=== PATIENT | female | born 1990 | race Caucasian/White ===

== ENCOUNTER 2017-01-17 08:22 | Inpatient (IN) | payer OTHER ==
--- NOTE | ~2017-01-17 | PN ---
Unit #: [id number] #: [id number] Patient: NAT PATTON [id number] [facility] [address] [place] [address] [id number] MR#: [id number] NAME: NAT PATTON ROOM: [facility] Age: 26 Sex: F Admission Date: 01/17/2017 : 1990 Attending Physician: Yaniv Bernard M.D. Admitting Physician: Pete Romero PROGRESS NOTES DATE OF SERVICE: 01/19/2017 DISCUSSION Ms. Nat Dan is a 26-year-old female, seen on 01/19/2017. The patient was having lot of problem with vomiting, withdrawal symptoms from opiate withdrawal, subsequently the patient was started on methadone 15 mg at bedtime with a plan to taper it off. The patient reports no changes, still having above-mentioned symptoms. The patient received Phenergan for vomiting. Vital signs; temperature 98.4, pulse 78, and blood pressure 87/53. The patient isolative, guarded, flat affect, stayed in her room. Reported symptoms like nausea, vomiting, chills, aches, tremor. REVIEW OF SYSTEMS Complete review of systems unremarkable. MENTAL STATUS EXAMINATION General appearance, the patient dressed in hospital attire. Attention span and concentration, poor. Oriented in place and person. Mood and affect, sad and depressed. Speech, monotone. Thought process, concrete. The patient denied any thoughts of harming self or others, but guarded. Recent and remote memory, poor. Insight and judgment, poor. DIAGNOSES Opiate use disorder, severe. ASSESSMENT AND PLAN Advised to continue with current medication and therapeutic protocol. If needed, consider further adjustment of medication. Dictated by... Pete Romero/adiel TD: 01/20/2017 15:05 JOB #: [id number] Unit #: [id number] #: [id number] Patient: NAT PATTON PROGRESS NOTES Page 1 of 1 X Yaniv Bernard MD PROGRESS NOTE
--- NOTE | ~2017-01-17 | HP ---
Unit #: [id number] #: [id number] Patient: NAT PATTON [id number] [place] [address] [id number] I MR#: [id number] NAME: NAT PATTON ROOM: 86 Age: 26 Sex: F Admission Date: 01/17/2017 : 1990 Attending Physician: Yaniv Bernard M.D. Admitting Physician: Yaniv Bernard M.D. Primary Care Physician: Generic Doctor Not In System HISTORY AND PHYSICAL HISTORY OF PRESENT ILLNESS Nat is a 26 year old admitted to [facility] because of her drug use. She shoots heroin. PAST MEDICAL HISTORY 1. Long history of opioid abuse to include IV heroin. 2. Hepatitis C. PAST SURGICAL HISTORY Nothing reported. ALLERGIES No known drug allergies. SOCIAL HISTORY He smokes greater than 1 pack per day. Denies alcohol. Admits to a long history of opioid abuse to include IV heroin. FAMILY HISTORY Medically noncontributory. REVIEW OF SYSTEMS CONSTITUTIONAL: No fever or chills. HEENT: Denies any sore throat, ear pain or runny nose. CARDIOVASCULAR: Denies chest pain, irregular heart rhythm or palpitations. CHEST: Denies shortness of breath or cough. No hemoptysis. GASTROINTESTINAL: Denies nausea, vomiting, diarrhea or chronic constipation. ENDOCRINE: Denies history of increased thirst or urination. No recent significant weight loss or gain. GENITOURINARY: Denies dysuria, frequency, or hematuria. SKIN: Denies any rashes. HEMATOLOGIC: Denies history of increased bleeding or bruising. MUSCULOSKELETAL: Denies any hot, swollen joints. No generalized muscle pain. NEUROLOGIC: Denies problems with vision or speech. No frequent, severe headaches. No numbness, tingling or weakness in any extremities. Denies loss of bladder or bowel control. CURRENT MEDICATIONS Detox protocol. PHYSICAL EXAMINATION Unit #: [id number] #: [id number] Patient: NAT PATTON GENERAL: Alert, well-nourished, in no apparent distress. VITAL SIGNS: Blood pressure 110/70, heart rate 100, respirations 16, temperature 98.6. WEIGHT: 100. HEIGHT: 5 feet 1 inch. SKIN: Warm and dry without rash or lesion. HEENT: Normocephalic. TMs not viewed. Oral and nasal passages clear. Conjunctivae clear. PERRLA. EOMs intact. NECK: Supple without lymphadenopathy or thyromegaly. HEART: Regular rate and rhythm without murmur. LUNGS: Clear. ABDOMEN: Soft, nontender. : Not done. EXTREMITIES: No evidence of cyanosis, clubbing or edema. Moves all without focal deficit. NEUROLOGICAL: Grossly within normal limits. Cranial Nerves: II: Visual doherty are intact. III, IV AND : Extraocular movements are intact. Pupils are equal, round and reactive to light. V: Facial sensation is grossly normal. VII: Facial movements and expression are normal. VIII: Auditory acuity grossly intact. IX, X: Uvula is midline. Phonation is normal. XI: Patient shrugs shoulders and turns head normally. XII: Tongue protrudes in the midline. Sensory and Motor Function: Sensory and motor sensation is grossly normal. Motor: moves all extremities well. Coordination: Gait is normal. Deep Tendon Reflexes: Intact. IMPRESSION Psychiatric admission. RECOMMENDATIONS PSYCHIATRIC: Per psychiatrist. MEDICAL: See no contraindications to participate in facility's activities. MEDICAL PROGNOSIS Good. MEDICAL CONDITION Stable. Dictated by... Dee Hidalgo P.A.-C. for Pete Henderson/cristi TD: 01/17/2017 18:37 JOB #: [id number] Unit #: [id number] #: [id number] Patient: NAT PATTON HISTORY AND PHYSICAL Page 1 of 1 X Dee Hidalgo X HISTORY AND PHYSICAL
--- NOTE | ~2017-01-17 | PA ---
Unit #: [id number] #: [id number] Patient: NAT PATTON [id number] [facility] [address] [place] [address] [id number] I MR#: [id number] NAME: NAT PATTON ROOM: [facility] Age: 26 Sex: F Admission Date: 01/17/2017 : 1990 Date of Assessment: 01/27/2017 Attending Physician: Yaniv Bernard M.D. Admitting Physician: Yaniv Bernard M.D. Primary Care Physician: Generic Doctor Not In System PSYCHIATRIC ASSESSMENT ADDENDUM This is the addendum for the job number [id number]. Please add after HPI. PAST PSYCHIATRIC HISTORY Remarkable for history of treatment for depression in 2004. FAMILY HISTORY AND SOCIAL HISTORY Poor support system. No history of abuse. MEDICAL HISTORY Remarkable for history of MRSA, hepatitis C. MUSCULOSKELETAL Muscle strength and tone no atrophy or abnormal movement. Gait normal. MEDICATION HISTORY None. ALLEGIES No known drug allergies. SUBSTANCE ABUSE HISTORY History of opioid abuse. Tobacco age of onset 16. Marijuana age of onset 10. Crack cocaine age of onset 11. Opioid age of onset 16. REVIEW OF SYSTEM EYES: Clear. EARS, NOSE, MOUTH AND THROAT: Clear. CARDIOVASCULAR: Unremarkable. RESPIRATORY: Unremarkable. GI/: Unremarkable. MUSCULOSKELETAL: Muscle strength and tone, no atrophy or abnormal movement. Gait normal. SKIN: Unremarkable. LYMPH NODES: Unremarkable. NEUROLOGICAL: Unremarkable. ENDOCRINE: Unremarkable. HEMATOLOGICAL: Unremarkable. ALLERGIC: Unremarkable. IMMUNOLOGICAL: Unremarkable. Unit #: [id number] #: [id number] Patient: NAT PATTON MENTAL STATUS EXAMINATION CONSTITUTIONAL: Measurement of vital signs, T. 98.0, P. 78, R. 15, B/P 87/53, Height 5'1", Weight 100 lbs. GENERAL APPEARANCE: The patient casually dressed. No facial deformity noted. Musculoskeletal - Please see above PSYCHIATRIC EXAMINATION: Description of speech, regular rate, normal volume. Description of thought process, goal directed. Description of associations, intact. Description of abnormal psychotic thinking, the patient denied any hallucinations, delusions but mood lability. Description of patient's judgment concerning everyday activities, poor; social situation, poor; concerning psychiatric condition, poor. COMPLETE MENTAL STATUS EXAMINATION: Oriented to time, place and person. Recent and remote memory poor. Attention span, concentration poor. Mood and affect sad, dysphoric. Insight/judgment fair to poor. ASSETS AND LIABILITIES ASSETS: The patient articulate, able to take care of her activities of daily living. LIABILITIES: History of depression, substance abuse. ADMITTING DIAGNOSES PSYCHIATRIC: 1. Opiate use disorder severe F11.20. 2. Cocaine use disorder severe F14.20. 3. Mood disorder NOS F32.9. SECONDARY DIAGNOSIS Deferred. MEDICAL DIAGNOSIS None. STRESSOR Psychosocial stressor. PSYCHIATIRIC PLAN/TREATMENT GOAL/DISCHARGE PLAN 1. Advise to admit the patient on the inpatient unit. Provide safe supportive structured environment. 2. Order labs, CBC, CMP, UA, UDS. 3. Detox protocol, detox monitoring. 4. The patient to attend all the programming on the inpatient unit. If needed consider further adjustment of medication. 5. Treatment goal to attain euthymic mood, gain insight into her problem, learn coping skill. DISCHARGE PLAN Plan to stabilize patient and consider followup in outpatient program. ESTIMATED LENGTH OF STAY Three to five days. Unit #: [id number] #: [id number] Patient: NAT PATTON Dictated by... Pete Romero/sandoval TD: 01/30/2017 00:38 JOB #: [id number] PSYCHIATRIC ASSESSMENT Page 1 of 1 X Yaniv Bernard MD X PSYCHIATRIC ASSESSMENT
--- NOTE | ~2017-01-17 | CO ---
Unit #: [id number] #: [id number] Patient: NAT PATTON [id number] [place] [address] [id number] I MR#: [id number] NAME: NAT PATTON ROOM: [facility] Age: 26 Sex: F Admission Date: 01/17/2017 : 1990 Attending Physician: Yaniv Bernard M.D. Primary Care Physician: Generic Doctor Not In System Consultation Date: 01/19/2017 CONSULTATION REPORT ORDERING PROVIDER Dr. Bernard. REASON FOR CONSULT Vomiting. SUBJECTIVE The patient reports that she has been vomiting since admission for approximately 3 days. She denies that it is better today. She reports that she was vomiting all night. She is detoxing from alcohol and drugs, currently on methadone therapy. She reports generalized abdominal pain, but worse in the lower quadrant that she describes colicky and crampy. She denies any diarrhea and reports positive constipation with last bowel movement being 5 days ago. However, per nursing, she came to them just yesterday saying that she was having diarrhea. She reports that the nursing has been giving her Phenergan both orally and IM, but neither is helping. However, per nursing, she was requesting IM Phenergan this morning. OBJECTIVE The patient's examination is unremarkable. Her vital signs are stable. She does have abdominal tenderness, but I do believe it to be exaggerated. When I came into the room, she was up and eating cereal. She does not appear toxic in any way. ASSESSMENT Vomiting, likely due to detox. PLAN Continue Phenergan as needed. Since the patient seems to be tolerating food, we will encourage a bland diet. If vomiting persists, we will re-evaluate. The patient is refusing an abdominal x-ray. Dictated by... Puja Carlson/adiel TD: 01/20/2017 01:14 JOB #: [id number] Unit #: [id number] #: [id number] Patient: NAT PATTON CONSULTATION REPORT Page 1 of 1 X WILBER MCINTOSH APRN X CONSULTATION REPORT
--- NOTE | ~2017-01-17 | PA ---
Unit #: [id number] #: [id number] Patient: NAT PATTON [id number] [facility] [address] [place] [address] [id number] I MR#: [id number] NAME: NAT PATTON ROOM: [facility] Age: 26 Sex: F Admission Date: 01/17/2017 : 1990 Date of Assessment: 01/18/2017 Attending Physician: Yaniv Bernard M.D. Admitting Physician: Yaniv Bernard M.D. Primary Care Physician: Generic Doctor Not In System PSYCHIATRIC ASSESSMENT DATE OF SERVICE 01/17/2017. INFORMANTS The patient reliability, fair informant and chart reliability, good. CHIEF COMPLAINT Detox from drugs. HISTORY OF PRESENT ILLNESS Ms. Alba is a 26-year-old white female, presented with the above-mentioned complaint. The patient reports that feeling sick, having lot of withdrawal symptom. The patient reported drug of choice as opioids. Feeling sad and depressed and feeling of hopelessness and worthlessness. The patient denied any current suicidal or homicidal ideation. The patient presented to [facility] requesting for mental health detox. The patient stated that she has been using up to half a gram of heroin daily and reports that symptoms of withdrawal such as sweats, yawning, runny nose, stomach cramping, hot and cold sweats, leg cramping, headache, pins and needles, and freezing. The patient scored 17 on COWS score. The patient reported feeling depressed, feeling of hopelessness, decreased motivation, poor appetite, and difficulty in completing ADL. The patient reported recent suicide attempt by cutting her wrist in October. The patient reported limited support system and history of trauma. The patient denied any legal charges. Living with friend. Poor support system. The patient also reported abusing Seroquel . Dictated by... Yaniv Bernard M.D. DANIELA/adiel TD: 01/18/2017 16:04 JOB #: [id number] Unit #: [id number] #: [id number] Patient: NAT PATTON PSYCHIATRIC ASSESSMENT Page 1 of 1 X Yaniv Bernard MD PSYCHIATRIC ASSESSMENT
--- NOTE | ~2017-01-17 | DS ---
Unit #: [id number] #: [id number] Patient: NAT PATTON [id number] [facility] [address] [place] [address] [id number] MR#: [id number] NAME: NAT PATTON ROOM: [facility] Age: 26 Sex: F Admission Date: 01/17/2017 : 1990 Discharge Date: 01/20/2017 Attending Physician: Yaniv Bernard M.D. Primary Care Physician: Generic Doctor Not In System DISCHARGE SUMMARY REASON FOR ADMISSION Detox from opioids. DIAGNOSTIC STUDIES LABORATORY RESULTS: Urine drug screen positive for cocaine and opioids. HOSPITAL COURSE The patient was admitted to inpatient unit on 01/17/2017 and discharged on 01/20/2017. The patient was treated on the inpatient unit with detox protocol, detox monitoring, group therapy, individual therapy, and medication management. The patient responded well with the above modalities of treatment and requested for discharge. The patient was subsequently discharged with a plan to follow up in outpatient program. The patient was not suicidal or homicidal. DISCHARGE DIAGNOSES Psychiatric: 1. Opioid use disorder, severe. 2. Cocaine use disorder, severe. 3. Mood disorder, not otherwise specified. Secondary diagnosis: Deferred. Medical diagnosis: None. Stressors: Psychosocial stressors. DISCHARGE INSTRUCTIONS The patient is to follow up in outpatient clinic as per nephrology social worker. CONDITION ON DISCHARGE The patient was pleasant and cooperative. Denied any psychotic symptom or any suicidal ideation. PROGNOSIS Guarded. DIET AND ACTIVITY As tolerated. Dictated by... Yaniv Bernard M.D. Unit #: [id number] #: [id number] Patient: NAT PATTON SZC/modl TD: 01/20/2017 23:38 JOB #: [id number] DISCHARGE SUMMARY Page 1 of 1 X Yaniv Bernard MD X DISCHARGE SUMMARY
--- NOTE | ~2017-01-17 | PN ---
Unit #: [id number] #: [id number] Patient: NAT VAZQUEZ [id number] [facility] [address] [place] [address] [id number] MR#: [id number] NAME: NAT VAZQUEZ ROOM: [facility] Age: 26 Sex: F Admission Date: 01/17/2017 : 1990 Attending Physician: Yaniv Bernard M.D. Admitting Physician: Yaniv Bernard M.D. Primary Care Physician: Generic Doctor Not In System [facility] PROGRESS NOTES DATE 01/18/2017 DISCUSSION Ms. Nat Vazquez is an 26-year-old female seen on 01/18/2017. The patient continues to look sick, sad, depressed, withdrawn, reports not feeling well. The patient's vital signs 98.4, 70, 101/59. The patient feeling cold, clammy. He reported feeling anxious and nervous. The patient received medication per protocol this morning Neurontin at 7:15. The patient staying in bed, isolative, flat affect, sad, depressed. Complete review of systems unremarkable. MENTAL STATUS EXAMINATION General appearance, the patient dressed casually. Attention span and concentration poor. Oriented to time, place and person. Mood and affect sad, depressed. Speech monotone, slow. Thought process circumstantial. The patient denied any thoughts of harming self or others but withdrawn, isolative, flat affect, anxious. Recent and remote memory poor. Insight and judgement poor. DIAGNOSES 1. Opiate use disorder severe. 2. Mood disorder NOS. ASSESSMENT/PLAN Advise to continue with current medication and therapeutic protocol. If needed consider further adjustment of medication. Dictated by... Pete Romero/sandoval TD: 01/20/2017 02:19 JOB #: [id number] Unit #: [id number] #: [id number] Patient: NAT VAZQUEZ PROGRESS NOTES Page 1 of 1 X Yaniv Bernard MD PROGRESS NOTE
[2017-01-18 10:52] LABS: AMPHETAMINE NEG (NEG); BARBITURATES NEG (NEG); BENZODIAZEPINES NEG (NEG); COCAINE POS (NEG); MARIJUANA NEG (NEG); OPIATES POS (NEG); TRICYCLIC ANTIDEPRESSANTS NEG (NEG); U METHADONE NEG (NEG)
[2017-01-19 12:16] LABS: BASOPHIL# 0.1 X10e3 (0-0.3); BASOPHIL% 0.7 % (0-2.5); HEMATOCRIT 43.4 % (35.0-45.0); HEMOGLOBIN 14.1 gm/dL (12.0-16.0); LYMPHOCYTE# 2.6 X10e3 (1.0-3.5); LYMPHOCYTE% 18.7 % (17.0-45.0); MEAN CELL VOLUME 85.2 FL (83-96); MEAN CORPUSCULAR HEMOGLOBIN 27.7 PG (28-34); MEAN CORPUSCULAR HGB CONC 32.5 g/dL (30-36); MEAN PLATELET VOLUME 7.9 FL (6.5-11.5); MONOCYTE# 0.7 X10e3 (0-1.0); NEUTROPHIL# 10.7 X10e3 (1.5-7.1); NEUTROPHIL% 75.6 % (40-75); PLATELET COUNT 301 X10e3 (140-420); RED BLOOD COUNT 5.09 X10e (3.90-5.30); WHITE BLOOD COUNT 14.1 X10e3 (4.0-10.5)
[2017-01-19 12:28] LABS: DIFF IND NO
[2017-01-19 12:41] LABS: ALBUMIN SERUM 4.2 g/dL (3.5-5.0); BILIRUBIN,TOTAL 0.4 mg/dL (0.2-2.0); CALCIUM SERUM 9.4 mg/dL (8.4-10.2); CREATININE SERUM 0.8 mg/dL (0.6-1.4); GLOM FILT RATE Estimated 100.4 mL/min (>60); POTASSIUM 4.1 mmol/L (3.5-5.1); PROTEIN TOTAL SERUM 7.2 g/dL (6.0-8.3)
== END 2017-01-20 12:10 | disposition home or self-care (01) | DRG 897 ==
LOC: P1E 10:17
PROVIDERS: Psychiatry & Neurology Psychiatry
PROC: HZ2ZZZZ Detoxification Services for Substance Abuse Treatment (ICD-10-PCS; principal; 2017-01-17)
DX: F11.23 Opioid dependence with withdrawal (principal); F14.20 Cocaine dependence, uncomplicated; F39 Unspecified mood [affective] disorder; F17.210 Nicotine dependence, cigarettes, uncomplicated; R11.10 Vomiting, unspecified
CPT/HCPCS: 80053; 80307; 84703; 85025; 86592; J2550